=== PATIENT | male | born 1955 | race Caucasian/White ===

== ENCOUNTER 2017-10-31 12:23 | Day surgery (SDC) | payer BC ==
[~2017-10-31] VITALS: Ht 180.3 cm; Wt 84.9 kg
[~2017-10-31 12:23] MED LIST: Pravachol40 MG PO
[2017-10-31] MEDS ORDERED: Tylenol325 MG (12:52)
[2017-10-31] MEDS ORDERED: IBUP400 (12:52)
[2017-10-31] MEDS ORDERED: [UNRECOGNIZED DRUG - OTHER] (12:53)
== END 2017-10-31 14:45 | disposition home or self-care (01) ==
LOC: ORSCSDS 12:23
PROVIDERS: Internal Medicine Gastroenterology
PROC: 0DBK8ZX Excision of Ascending Colon, Via Natural or Artificial Opening Endoscopic, Diagnostic (ICD-10-PCS; principal; 2017-10-31 13:45)
DX: Z12.11 Encounter for screening for malignant neoplasm of colon (principal); D12.2 Benign neoplasm of ascending colon; E78.5 Hyperlipidemia, unspecified; I10 Essential (primary) hypertension; I42.2 Other hypertrophic cardiomyopathy; Z79.899 Other long term (current) drug therapy
CPT/HCPCS: 88305; J7120